=== PATIENT | male | born 1995 | race Hispanic/Latino ===

== ENCOUNTER 2019-05-02 17:25 | Emergency (ER) | payer OTHER ==
[~2019-05-02] VITALS: Ht 180.3 cm; Wt 97.7 kg
[2019-05-02] MEDS ORDERED: KETOROLAC TROMETHAMINE 60 MG/2 ML VIAL IM ONE (18:00)
--- NOTE | 2019-05-02 19:10 | Diagnostic Imaging Report ---
EXAM: CXR 2 VIEW - [facility]OPD DATE: 05/02/2019 12:00 AM INDICATION: ^cough and cp ^[id number] ^[id number] COMPARISON: None FINDINGS: Lines and tubes: None Heart size normal. No focal pulmonary opacity, pleural effusion or pneumothorax. Upper abdomen unremarkable. No acute bony abnormality. IMPRESSION: No evidence for acute disease. Signed by: Dr. Matias Soto M.D. on 05/02/2019 7:06 PM
--- NOTE | 2019-05-02 19:17 | NUR ---
REC'D REPORT FROM OFF GOING NS. PT AWAITING DISPO
[2019-05-02] MEDS ORDERED: CYCLOBENZAPRINE5 MG PO (19:38)
[2019-05-02] MEDS ORDERED: PREDNISONE20 MG PO (19:38)
[2019-05-02] MEDS ORDERED: AZITHROMYCIN500 MG PO (19:39)
[2019-05-02 20:52] VITALS: BP 122/67
== END 2019-05-02 19:55 | disposition home or self-care (01) ==
LOC: FSED 17:25
DX: R07.89 Other chest pain (principal); S29.011A Strain of muscle and tendon of front wall of thorax, initial encounter; R05 Cough; J20.9 Acute bronchitis, unspecified
CPT/HCPCS: 71046; 93005; 96372; 99283; J1885